=== PATIENT | female | born 2000 | race Caucasian/White ===

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

== ENCOUNTER → 2022-03-10 16:47 | Outpatient (BNVA) | payer BC, SELFPAY | PROVIDERS: Family Provider Nurse Practitioner Family; Visit Provider Nurse Practitioner Family | DX: R68.89 Other general symptoms and signs (principal); R11.2 Nausea with vomiting, unspecified | CPT/HCPCS: 81025; 87400 ==

== ENCOUNTER 2023-11-08 07:38 | Emergency (ER) | payer MEDICAID, SELFPAY ==
[2023-11-08 07:44] VITALS: BP 116/76; PULSE 86; RESP 17; TEMP 36.6; O2SAT 100; BMI 19.3
[2023-11-08] MEDS: ondansetron 2 mg/ML SDV 2 mL 4 MG IVP (08:22)
[2023-11-08] MEDS: sodium chloride 0.9% 1,000 ML 999 ML IV (08:23)
--- NOTE | 2023-11-08 08:25 | ED_ITS ---
HPI - SOB/Dyspnea 2 General: Chief Complaint: Shortness of Breath/Dyspnea Stated Complaint: SOB Time Seen by Provider: 11/08/23 08:02 Source: patient Mode of arrival: ambulatory History of Present Illness: HPI Narrative: 23-year-old female who presents emergenc y room with bilateral abdominal pain and shortness of breath pain with deep inspiration. She felt like she had a fever yesterday but did not take her temperature. She does vape does not smoke. Patient is G2, P1, she is approximately 10 weeks with an EDC in June 04, 2024. She denies any productive cough. Her pain is reproducible with inspiration only. She denies any dysuria urgency or frequency complains of some midline abdominal cramping and discomfort that is been ongoing. No vaginal discharge no bleeding. MD elicited complaint: pain with inspiration Associated symptoms: Reports abdominal pain (Suprapubic) and chest pain; Deny fever(s) Review of Systems 2 Const: Denies: fever(s) or chills Card: Reports: chest pain Resp: Denies: dyspnea, productive cough, non-productive cough or wheezing GI: Reports: abdominal pain (Suprapubic) : Denies: dysuria, urinary frequency or urinary urgency Musc: Denies: neck pain or back pain Skin/Breast: Denies: rash PFSH ED 2 PFSH: Family History Other Cancer Stroke Social History Smoking and tobacco/nicotine status: current every day tobacco/nicotine user Second hand smoke exposure: Yes Alcohol intake: never Substance/Drug Use: never Do you think of yourself as: Straight/Heterosexual Current gender identity: Female Female Reproductive History: Spontaneous abortions: No Physical Exam 2 Const: COMMON NORMALS: no acute distress GENERAL APPEARANCE: cooperative and comfortable ORIENTATION/CONSCIOUSNESS: Yes awake, Yes oriented to person, Yes oriented to place and Yes oriented to time HENMT: COMMON NORMALS: normocephalic, atraumatic and hearing grossly normal bilaterally HEAD & SCALP: normocephalic and atraumatic Resp: COMMON NORMALS: normal respiratory effort, No retractions, No use of accessory muscles and clear to auscultation bilaterally AUSCULTATION: clear to auscultation bilaterally Cardio: COMMON NORMALS: regular rate, regular rhythm and No murmurs present (Cardio) RATE: regular rate RHYTHM: regular rhythm GI: COMMON NORMALS: Soft to palpation and No hepatosplenomegaly present A USCULTATION: Yes normoactive bowel sounds PALPATION: Yes Soft to palpation, No Tenderness to palpation present (GI), No Guarding due to palpation present (GI) and Yes No hepatosplenomegaly present Extremity: COMMON NORMALS: normal to inspection, capillary refill normal, no clubbing, cyanosis or edema, no calf tenderness and no pedal edema Neuro: SENSORIUM/ORIENTATION: Yes oriented to person, Yes oriented to place and Yes oriented to time Skin: COMMON NORMALS: no rashes or lesions noted GENERAL SKIN EXAM: no rashes or lesions noted Course 2 Vital Signs: Vital signs: Vital Signs Temperature 97.9 F 11/08/23 07:44 Pulse Rate 79 11/08/23 08:45 Respiratory Rate 17 11/08/23 07:44 Blood Pressure 115/73 11/08/23 08:45 Pulse Oximetry 100 11/08/23 08:45 Oxygen Delivery Me thod Room Air 11/08/23 08:45 MDM - SOB/Dyspnea Medical Decision Making Labs show cystitis. Her complaint of chest discomfort is consistent with a pleuritic causes worse when she takes a deep breath lung sounds are clear chest x-ray is normal. She is not tachycardic or hypoxic. Will discharge patient home can use anti-inflammatories for the pleuritic chest pain started on oral antibiotics for the cystitis follow-up with her primary neurosurgical nurse practitioner return if worsens Medical Records I reviewed the patient's medical records. Lab Data I reviewed the patient's lab results. 11/08/23 08:18 11/08/23 08:18 Labs/Radiology: Radiology Impressions Chest X-Ray 11/08/23 08:47 IMPRESSION: No acute intrathoracic findings. Laboratory Results WBC 6.02 10^3/uL (3.29-11.43) 11/08/23 08:18 RBC 4.48 10^6/uL (3.85-5.65) 11/08/23 08:18 Hgb 13.00 g/dL (11.27-16.99) 11/08/23 08:18 Hct 37.8 % (36-47) 11/08/23 08:18 MCV 84.4 fl (85-98) L 11/08/23 08:18 MCH 29.0 pg (27-33) 11/08/23 08:18 MCHC 34.4 g/dL (30-55) 11/08/23 08:18 RDW 12.7 % (12.1-15.1) 11/08/23 08:18 Plt Count 205 10^3/cmm (157-399) 11/08/23 08:18 MPV 9.9 fL (7.4-10.4) 11/08/23 08:18 Neut % (Auto) 64.2 % 11/08/23 08:18 Lymph % (Auto) 17.6 % 11/08/23 08:18 [place] % (Auto) 10.8 % 11/08/23 08:18 Eos % (Auto) 6.8 % 11/08/23 08:18 Baso % (Auto) 0.3 % 11/08/23 08:18 Neut # (Auto) 3.86 10^3/uL (1.8-7.7) 11/08/23 08:18 Lymph # (Auto) 1.1 10^3/uL (0.8-4.8) 11/08/23 08:18 [place] # (Auto) 0.7 10^3/uL (0.2-0.9) 11/08/23 08:18 Eos # (Auto) 0.4 10^3/uL (0.0-0.8) 11/08/23 08:18 Baso # (Auto) 0.0 10^3/uL (0.0-0.1) 11/08/23 08:18 Nucleated RBC % (auto) 0 % 11/08/23 08:18 Nucleated RBCs # 0.0 /100WBC 11/08/23 08:18 Sodium 133 mmol/L (136-145) L 11/08/23 08:18 Potassium 3.7 mmol/L (3.5-5.1) 11/08/23 08:18 Chloride 101 mmol/L (98-107) 11/08/23 08:18 Carbon Dioxide 20 mmol/L (22-29) L 11/08/23 08:18 Anion Gap 15.7 (5-19) 11/08/23 08:18 BUN 6 mg/dL (6-20) 11/08/23 08:18 Creatinine 0.4 mg/dL (0.5-0.9) L 11/08/23 08:18 GFR Calculation 201.5 mL/min (90-130) H 11/08/23 08:18 Glucose 89 mg/dL (65-115) 11/08/23 08:18 Calculated Osmolality 273 mOsm/kg (285-295) L 11/08/23 08:18 Calcium 9.3 mg/dL (8.5-10.5) 11/08/23 08:18 Magnesium 2.0 mg/dL (1.7-2.3) 11/08/23 08:18 Total Bilirubin 0.3 mg/dL (0.15-1.2) 11/08/23 08:18 AST 9 U/L (0-32) 11/08/23 08:18 ALT 11 U/L (0-33) 11/08/23 08:18 Alkaline Phosphatase 70 U/L (35-105) 11/08/23 08:18 Total Protein 7.1 g/dL (6.6-8.7) 11/08/23 08:18 Albumin 4.0 g/dL (3.5-5.2) 11/08/23 08:18 Globulin 3.1 g/dL (1.3-4.6) 11/08/23 08:18 Ser , Semi-Qnt 06683.00 mIU/mL 11/08/23 08:18 Urine Color Dark yellow (Yellow) 11/08/23 08:20 Urine Appearance Cloudy (CLEAR) A 11/08/23 08:20 Urine pH 6 (5-7) 11/08/23 08:20 Ur Specific [place] 1.025 (1.005-1.030) 11/08/23 08:20 Urine Protein Neg (Negative) 11/08/23 08:20 Urine Glucose (UA) Norm (Normal) 11/08/23 08:20 Urine Ketones Negative (Negative) 11/08/23 08:20 Urine Blood Trace (Negative) H 11/08/23 08:20 Urine Nitrate Negative (Negative) 11/08/23 08:20 Urine Bilirubin Neg (Negative) 11/08/23 08:20 Urine Urobilinogen Norm mg/dL (Negative) 11/08/23 08:20 Ur Leukocyte Esterase 2+ (Negative) H 11/08/23 08:20 Urine RBC 0-4 /hpf (0-2) H 11/08/23 08:20 Urine WBC 10-15 /hpf (0-5) H 11/08/23 08:20 Ur Squamous Epith Cells 10-15 /hpf (0-5) H 11/08/23 08:20 Ur Transition Epith Cell 0-4 /hpf 11/08/23 08:20 Amorphous Sediment Not Reportable 11/08/23 08:20 Urine Bacteria 1+ /hpf (NONE) H 11/08/23 08:20 Urine Mucus 3+ /hpf 11/08/23 08:20 All radiology interpretation(s) finalized by discharge Discharge Plan Discharge Patient Disposition: Home Clinical Impression: Pleuritic chest pain, Cystitis Condition: Stable Prescriptions: New Macrobid 100 mg capsule 100 mg PO BID 7 Days Qty: 14 0RF Rx Instructions: must administer with a meal/food No Action 28 mg iron- 800 mcg Tablet 1 tab PO QPM Discharge Orders: Discharge ED (Routine); Ordered 11/08/23 Ordered By: Sidney Lorenz Discharge Diet: Usual diet Discharge Activity: Increase activity as tolerated Patient Instructions: Opioid Safety, Pain Management Activity Restrictions/Additional Instructions: Thank you for choosing [facility] for your healthcare needs today. It is very important that you follow up as instructed or that you return to the Emergency Department should you have concerns or if your condition changes or worsens in any way. You were seen in the emergency room for complaint of chest discomfort. Your chest x-ray was unremarkable EKG were normal based on description of your symptoms your chest pain appears to be more related to pleuritic irritation. He had also complained of some suprapubic abdominal discomfort and you were noted to have a bladder infection. Recommend for the pleuritic chest pain use Tylenol or ibuprofen or Aleve [id number]. For the bladder infection start Macrobid 1 pill twice daily for 7 days follow-up with your primary care doctor return if you have further problems. Coding Level of Care Code ED Window Shade Estimator for Joseph Ramos
[2023-11-08 08:39] LABS: Basophils % 0.3 %; Eosinophils # 0.4 10^3/uL (0.0-0.8); Eosinophils % 6.8 %; Hematocrit 37.8 % (36-47); Lymphocytes # 1.1 10^3/uL (0.8-4.8); Lymphocytes % 17.6 %; Mean Corpuscular HGB Conc 34.4 g/dL (30-55); Mean Corpuscular Volume 84.4 fl (85-98); Mean Platelet Volume 9.9 fL (7.4-10.4); Monocytes # 0.7 10^3/uL (0.2-0.9); Monocytes % 10.8 %; Neutrophils # 3.86 10^3/uL (1.8-7.7); Neutrophils % 64.2 %; Nucleated Red Blood Cells % 0 %; Platelet Count 205 10^3/cmm (157-399); Red Blood Count 4.48 10^6/uL (3.85-5.65); Red Cell Distribution Width 12.7 % (12.1-15.1); White Blood Count 6.02 10^3/uL (3.29-11.43)
[2023-11-08 08:45] VITALS: BP 115/73; PULSE 79; O2SAT 100
--- NOTE | 2023-11-08 08:47 | XRR_ITS ---
PROCEDURE INFORMATION: Exam: XR Chest Exam date and time: 11/08/2023 8:51 AM Age: 23 years old Clinical indication: Shortness of breath; Additional info: Painful inspiration, 10 weeks shield abdomen/pelvis TECHNIQUE: Imaging protocol: Radiologic exam of the chest. Views: 1 view. COMPARISON: No relevant prior studies available. FINDINGS: Lungs: No consolidation. Pleural spaces: No sizable pleural effusion or pneumothorax. Heart/Mediastinum: No cardiomegaly. Bones/joints: Unremarkable. XR/XR chest 1V portable [id number] IMPRESSION: No acute intrathoracic findings.
[2023-11-08 08:55] LABS: Add Urine Microscopic? YES; Bilirubin Urine Neg (Negative); Blood Urine Trace (Negative); Glucose Urine UA Norm (Normal); Ketones Urine Negative (Negative); Leukocyte Esterase Urine 2+ (Negative); Nitrate Urine Negative (Negative); Protein Urine Neg (Negative); Specific Gravity, Urine 1.025 (1.005-1.030); Urine Appearance Cloudy (CLEAR); Urine Color Dark Yellow (Yellow); Urobilinogen Urine Norm (Negative); pH Urine 6 (5-7)
[2023-11-08 08:59] LABS: Alanine Aminotransferase 11 U/L (0-33); Alkaline Phosphatase 70 U/L (35-105); Anion Gap 15.7 (5-19); Aspartate Amino Transferase 9 U/L (0-32); Blood Urea Nitrogen 6 mg/dL (6-20); Calcium 9.3 mg/dL (8.5-10.5); Carbon Dioxide 20 mmol/L (22-29); Chloride 101 mmol/L (98-107); Creatinine Clr Calc Pharmacy 201.4304; Globulin 3.1 g/dL (1.3-4.6); Glomerular Filtration Rate 201.5 mL/min (90-130); Glucose 89 mg/dL (65-115); Osmolality Calculated 273 mOsm/kg (285-295); Potassium 3.7 mmol/L (3.5-5.1); Sodium 133 mmol/L (136-145); Total Bilirubin 0.3 mg/dL (0.15-1.2); Total Protein 7.1 g/dL (6.6-8.7)
[2023-11-08 09:00] LABS: Bacteria Urine 1+ /hpf; Mucus Urine 3+ /hpf; RBC Urine 0-4 /hpf (0-2); Transitional Epi Cells Urine 0-4 /hpf
[2023-11-08 09:01] LABS: Add Urine Culture? No
== END 2023-11-08 10:30 | disposition home or self-care (01) ==
PROVIDERS: Emergency Provider Family Medicine
DX: R09.1 Pleurisy (principal); N30.90 Cystitis, unspecified without hematuria; Z72.0 Tobacco use
CPT/HCPCS: 71045; 80053; 81001; 83735; 84702; 85025; 96361; 96374; 99284; J2405; J7030

== ENCOUNTER 2024-11-11 18:24 | Emergency (ER) | payer MEDICAID, SELFPAY ==
[2024-11-11 18:25] VITALS: BP 103/73; PULSE 115; RESP 16; TEMP 36.7; O2SAT 98; BMI 20.6
--- NOTE | 2024-11-11 18:43 | ED_ITS ---
HPI - Nausea/Vomiting/Diarrhea 2 General: Chief complaint: Nausea/Vomiting/Diarrhea Stated complaint: n/v/d, HERNÁNDEZ for 2 days Time Seen by Provider: 11/11/24 18:30 History of Present Illness: Patient is a 24-year-old female started having abrupt nausea, vomiting on Tuesday, which worsened throughout the day yesterday, and patient is attempted to drink 5 glasses of water and thrown up every time today. She started having loose stools today. Abdominal pain is associated in her mid epigastrium. No sick contact. She is unsure why she is doing this. No recent antibiotic use. She is trying to get by without coming to the emergency room. Denies . She has Implanon in her arm. Associated symtoms: Denies anxiety, change in vision, chest pain, headache(s) or palpitations Related Data Home Medications ?Medication ?Instructions ?Recorded ?Confirmed vit no.95-ferrous 1 tab PO QPM 11/08/2311/07 fumarate 28 mg-folic acid 800 mcg tablet () Previous Rx's ?Medication ?Instructions ?Recorded ondansetron 4 mg disintegrating 4 mg PO Q8H PRN nausea and 11/11/24 tablet vomiting 4 days #10 tabs Allergies Allergy/AdvReac Type Severity Reaction Status Date / Time amoxicillin (From Augmentin) Allergy ADR-Diarrhe Verified 11/22/22 13:00 a clavulanic acid (From Allergy ADR-Diarrhe Verified 11/22/22 13:00 Augmentin) a Review of Systems 2 General: Reports: 10 or more systems reviewed and unremarkable except in HPI and below Const: Denies: fever(s) or chills Eyes: Denies: change in vision or blurry vision ENMT: Denies: throat pain, uvular edema or mouth pain Card: Denies: chest pain or palpitations Resp: Denies: dyspnea or productive cough GI: Reports: abdominal pain : Denies: flank pain or difficulty voiding Musc: Denies: neck pain, back pain, extremity pain or joint pain Skin/Breast: Denies: rash or pruritus Neuro: Denies: headache(s), numbness in extremities or sensory changes Psych: Denies: anxiety or depression PFSH ED 2 PFSH: Family History Other Cancer Stroke Social History Smoking and tobacco/nicotine status: current every day tobacco/nicotine user Second hand smoke exposure: Yes Alcohol intake: never Substance/Drug Use: never Do you think of yourself as: Straight/Heterosexual Current gender identity: Female Female Reproductive History: Spontaneous abortions: No Physical Exam 2 Const: COMMON NORMALS: no acute distress, average body habitus, patient oriented x3, no limitations, healthy appearing, alert and well nourished HENMT: COMMON NORMALS: normocephalic, atraumatic and hearing grossly normal bilaterally HEAD & SCALP: normocephalic and atraumatic THROAT: no uvular edema Neck/C-Spine: COMMON NORMALS: full ROM and no lymphadenopathy Lymph: LYMPHATIC: no lymphadenopathy noted Chest: COMMONS NORMALS: normal inspection of the chest and normal palpation of entire chest wall Resp: COMMON NORMALS: normal respiratory effort and clear to auscultation bilaterally EFFORT & INSPECTION: Yes able to speak in complete sentences and No respiratory distress AUSCULTATION: clear to auscultation bilaterally Cardio: COMMON NORMALS: regular rate and regular rhythm RATE: regular rate RHYTHM: regular rhythm GI: COMMON NORMALS: Normal to inspection, nondistended, normoactive bowel sounds present and Soft to palpation PALPATION: Yes Soft to palpation and Yes Tenderness to palpation present (GI) Details: other (epigastrum) : COMMON NORMALS: Yes no CVA tenderness BLADDER/KIDNEY EXAM: Yes no CVA tenderness Back/Pelvis: COMMON NORMALS: no CVA tenderness Extremity: COMMON NORMALS: normal to inspection, full ROM and capillary refill normal Neuro: COMMON NORMALS: patient oriented x3 and CN's II-XII intact bilaterally SENSORIUM/ORIENTATION: Yes alert Psych: COMMON NORMALS: mental status grossly normal and Normal thought process present THOUGHT PROCESS: Normal thought process present Course 2 Vital Signs: Vital signs: Vital Signs Temperature 98.1 F 11/11/24 18:25 Pulse Rate 91 11/11/24 20:10 Respiratory Rate 16 11/11/24 20:10 Blood Pressure 103/68 11/11/24 20:10 Pulse Oximetry 100 11/11/24 20:10 Oxygen Delivery Me thod Room Air 11/11/24 18:25 MDM - Nausea/Vomiting/Diarrhea Medical Decision Making 24-year-old female with epigastric pain, nausea, vomiting, diarrhea. No sick exposure. Epigastric pain is significant for gastritis which is most likely cause. Will give antiemetic, PPI, recheck routine labs, then per decision making. Labs are consistent with metabolic acidosis/dehydration. Less likely that is associated with urinary pathology. Will cancel urine analysis. Lipase is not elevated or LFTs. PPI was given for possible gastritis due to examination. Zofran will be sent to pharmacy. Suspect this will be viral and self-limiting. Lab Data 11/11/24 18:50 11/11/24 18:50 Laboratory Results WBC 10.80 10^3/uL (3.29-11.43) 11/11/24 18:50 RBC 4.51 10^6/uL (3.85-5.65) 11/11/24 18:50 Hgb 12.60 g/dL (11.27-16.99) 11/11/24 18:50 Hct 37.4 % (36-47) 11/11/24 18:50 MCV 82.9 fl (85-98) L 11/11/24 18:50 MCH 27.9 pg (27-33) 11/11/24 18:50 MCHC 33.7 g/dL (30-55) 11/11/24 18:50 RDW 12.7 % (12.1-15.1) 11/11/24 18:50 Plt Count 260 10^3/cmm (157-399) 11/11/24 18:50 MPV 9.5 fL (7.4-10.4) 11/11/24 18:50 Neut % (Auto) 70.5 % 11/11/24 18:50 Lymph % (Auto) 14.1 % 11/11/24 18:50 [place] % (Auto) 14.8 % 11/11/24 18:50 Eos % (Auto) 0.2 % 11/11/24 18:50 Baso % (Auto) 0.1 % 11/11/24 18:50 Neut # (Auto) 7.62 10^3/uL (1.8-7.7) 11/11/24 18:50 Lymph # (Auto) 1.5 10^3/uL (0.8-4.8) 11/11/24 18:50 [place] # (Auto) 1.6 10^3/uL (0.2-0.9) H 11/11/24 18:50 Eos # (Auto) 0.0 10^3/uL (0.0-0.8) 11/11/24 18:50 Baso # (Auto) 0.0 10^3/uL (0.0-0.1) 11/11/24 18:50 Nucleated RBC % (auto) 0 % 11/11/24 18:50 Nucleated RBCs # 0.0 /100WBC 11/11/24 18:50 Sodium 133 mmol/L (136-145) L 11/11/24 18:50 Potassium 3.5 mmol/L (3.5-5.1) 11/11/24 18:50 Chloride 97 mmol/L (98-107) L 11/11/24 18:50 Carbon Dioxide 19 mmol/L (22-29) L 11/11/24 18:50 Anion Gap 20.5 (5-19) H 11/11/24 18:50 BUN 6 mg/dL (6-20) 11/11/24 18:50 Creatinine 0.5 mg/dL (0.5-0.9) 11/11/24 18:50 GFR Calculation 154.3 mL/min (90-130) H 11/11/24 18:50 Glucose 91 mg/dL (65-115) 11/11/24 18:50 Calculated Osmolality 273 mOsm/kg (285-295) L 11/11/24 18:50 Calcium 9.4 mg/dL (8.5-10.5) 11/11/24 18:50 Total Bilirubin 0.9 mg/dL (0.15-1.2) 11/11/24 18:50 AST 19 U/L (0-32) 11/11/24 18:50 ALT 28 U/L (0-33) 11/11/24 18:50 Alkaline Phosphatase 101 U/L (35-105) 11/11/24 18:50 Total Protein 7.6 g/dL (6.6-8.7) 11/11/24 18:50 Albumin 4.2 g/dL (3.5-5.2) 11/11/24 18:50 Globulin 3.4 g/dL (1.3-4.6) 11/11/24 18:50 Lipase 10 U/L (13-60) L 11/11/24 18:50 No radiology studies performed this visit Discharge Plan Discharge Patient Disposition: Home Clinical Impression: Gastroenteritis, Metabolic acidosis, Acute hyponatremia, Acute dehydration Condition: Stable Prescriptions: New ondansetron 4 mg tablet,disintegrating 4 mg PO Q8H PRN (Reason: nausea and vomiting) 4 Days Qty: 10 0RF No Action 28 mg iron- 800 mcg Tablet 1 tab PO QPM Discharge Orders: Discharge ED (Routine); Ordered 11/11/24 Ordered By: Aviva Jaramillo Discharge Diet: Clear Liquid Discharge Activity: Resume usual activity Patient Instructions: [place] Diet - Adult, Full Liquid Diet, Clear Liquid Diet (ED), Opioid Safety, Pain Management Activity Restrictions/Additional Instructions: First 24 hours is clear liquid diet. Information has been provided If he tolerates the clear liquid diet, you may then advance to a full liquid diet. If your full liquid diet is tolerated, advance to a bland diet. If you have issues with advancing, reduce it to the clear liquid diet and start over. Zofran has been sent to your pharmacy for nausea and vomiting. Use sparingly. Every 8 hours as needed only. You may obtain liquid Benadryl and follow bottle directions for additional nontypical nausea medication. Return to the ED for refractory ongoing nausea and vomiting. Print Language: Nigerian Coding Level of Care Code ED Community Development Technician for Joseph Ramos
[2024-11-11 18:59] VITALS: BP 100/75; PULSE 89; RESP 17; O2SAT 100
[2024-11-11 19:01] LABS: Basophils % 0.1 %; Eosinophils % 0.2 %; Hematocrit 37.4 % (36-47); Lymphocytes # 1.5 10^3/uL (0.8-4.8); Lymphocytes % 14.1 %; Mean Corpuscular HGB Conc 33.7 g/dL (30-55); Mean Corpuscular Hemoglobin 27.9 pg (27-33); Mean Corpuscular Volume 82.9 fl (85-98); Mean Platelet Volume 9.5 fL (7.4-10.4); Monocytes # 1.6 10^3/uL (0.2-0.9); Monocytes % 14.8 %; Neutrophils # 7.62 10^3/uL (1.8-7.7); Neutrophils % 70.5 %; Nucleated Red Blood Cells % 0 %; Platelet Count 260 10^3/cmm (157-399); Red Blood Count 4.51 10^6/uL (3.85-5.65); Red Cell Distribution Width 12.7 % (12.1-15.1)
[2024-11-11] MEDS: sodium chloride 0.9% 1,000 ML 999 ML IV (19:08)
[2024-11-11] MEDS: pantoprazole 40 mg SDV IVP (19:08)
[2024-11-11] MEDS: ondansetron 2 mg/ML SDV 2 mL 4 MG IVP (19:08)
[2024-11-11 19:18] LABS: Alanine Aminotransferase 28 U/L (0-33); Albumin Level 4.2 g/dL (3.5-5.2); Alkaline Phosphatase 101 U/L (35-105); Anion Gap 20.5 (5-19); Aspartate Amino Transferase 19 U/L (0-32); Blood Urea Nitrogen 6 mg/dL (6-20); Calcium 9.4 mg/dL (8.5-10.5); Carbon Dioxide 19 mmol/L (22-29); Chloride 97 mmol/L (98-107); Creatinine Clr Calc Pharmacy 163.8345; Globulin 3.4 g/dL (1.3-4.6); Glomerular Filtration Rate 154.3 mL/min (90-130); Glucose 91 mg/dL (65-115); Lipase 10 U/L (13-60); Osmolality Calculated 273 mOsm/kg (285-295); Potassium 3.5 mmol/L (3.5-5.1); Sodium 133 mmol/L (136-145); Total Bilirubin 0.9 mg/dL (0.15-1.2); Total Protein 7.6 g/dL (6.6-8.7)
[2024-11-11 20:10] VITALS: BP 103/68; PULSE 91; RESP 16; O2SAT 100
== END 2024-11-11 20:12 | disposition home or self-care (01) ==
PROVIDERS: Emergency Provider Physician Assistant
DX: K52.9 Noninfective gastroenteritis and colitis, unspecified (principal); E87.20 Acidosis, unspecified; E87.1 Hypo-osmolality and hyponatremia; E86.0 Dehydration; Z72.0 Tobacco use
CPT/HCPCS: 36415; 80053; 83690; 85025; 96361; 96374; 96375; 99284; J2405; J2470; J7030

== ENCOUNTER → 2024-11-19 12:28 | Outpatient (BNVA) | payer MEDICAID, SELFPAY | DX: N30.01 Acute cystitis with hematuria (principal) | CPT/HCPCS: 81000; 87077; 87086; 87184 ==